=== PATIENT | male | born 1955 | race Caucasian/White ===

== ENCOUNTER 2016-09-04 10:12 | Day surgery (SDC) | payer OTHER ==
[~2016-09-04] VITALS: Ht 180.3 cm; Wt 129.2 kg
[~2016-09-04 10:12] MED LIST: ATORVASTATIN CA40 MG PO; BUMETANIDE0.5 MG PO; COMBIGAN O20 DROP/5 BOTH EYES; ELIQUIS5 MG PO; HUMALOG100 UNIT/1 SC; HUMULIN N100 UNITS/ SC; LATANOPROST2.5 ML LEFT EYE; LO-DOSE ASPIRIN81 M2 PO; METOPROLOL SUCC50 MG PO; OMEPRAZOLE40 M1 PO; PREDNISOLONE AC15 ML RIGHT EYE; RAMIPRIL2.5 MG PO
[2016-09-04 11:29] VITALS: BP 161/78
[2016-09-04 11:35] LABS: POINT-OF-CARE METER ID UU14174212
[2016-09-04 15:16] LABS: POINT-OF-CARE METER ID UU14174212
[2016-09-04 18:00] LABS: POINT-OF-CARE METER ID UU14174212
[2016-09-04 20:25] VITALS: BP 175/79
== END 2016-09-04 21:00 | disposition home or self-care (01) ==
LOC: SDC 10:12
PROVIDERS: Ophthalmology
DX: H43.391 Other vitreous opacities, right eye (principal); H44.111 Panuveitis, right eye; I10 Essential (primary) hypertension; E10.9 Type 1 diabetes mellitus without complications; Z79.4 Long term (current) use of insulin; I48.91 Unspecified atrial fibrillation; Z79.82 Long term (current) use of aspirin
CPT/HCPCS: 82948; 87102; 87205; J0690; J0713; J1100; J2250; J2405; J2795; J3010; J3370; J3465

== ENCOUNTER 2016-11-06 16:13 | Day surgery (SDC) | payer OTHER ==
[~2016-11-06] VITALS: Ht 180.3 cm; Wt 131.8 kg
[~2016-11-06 16:13] MED LIST changes: +BUMEX2 MG PO; -COMBIGAN O20 DROP/5 BOTH EYES; +COMBIGAN O20 DROP/5 LEFT EYE; +COMBIGAN O20 DROP/5 RIGHT EYE; +PLAVIX75 MG PO; +TOPROL XL50 MG PO; +TRUSOPT5 ML LEFT EYE
[2016-11-06 17:05] LABS: POINT-OF-CARE METER ID UU14174212
[2016-11-06 17:15] VITALS: BP 146/62
[2016-11-06 17:33] LABS: ANION GAP 11 MEQ/L (2-14); CHLORIDE 108 MEQ/L (99-109); POTASSIUM 3.8 MEQ/L (3.7-5.4); SAMPLE HEMOLYSIS CHECK 0; SAMPLE ICTERIC CHECK 0; SAMPLE LIPEMIA CHECK 0; SODIUM 138 MEQ/L (136-147)
[2016-11-06 17:39] LABS: GFR ESTIMATE (CALCULATED) 55 mL/min/; GLUCOSE 186 mg/dL (70-99); UREA NITROGEN (BUN) 33 mg/dL (9-23)
[2016-11-06 19:42] LABS: POINT-OF-CARE METER ID UU13113675
[2016-11-06 19:50] VITALS: BP 197/84
[2016-11-06 20:08] VITALS: BP 179/82
[2016-11-07 10:43] LABS: TREPONEMA ANTIBODY NEGATIVE (NEGATIVE)
[2016-11-07 12:18] LABS: LYME DISEASE SEROLOGY SCREEN NEGATIVE (NEGATIVE)
[2016-11-08 19:20] LABS: VARICELLA-ZOSTER VIRUS PCR+ <500 (<500); VZV SOURCE Vitreous (())
[2016-11-08 22:16] LABS: QGTB-NIL 0.09 IU/mL (()); TB AG-NIL <0.00 IU/mL (())
[2016-11-09 23:17] LABS: Neutrophil Cytoplasmic Aby Negative (Negative)
[2016-11-10 08:02] LABS: CMV DNA QN REAL TIME PCR <200 IU/mL (<200)
[2016-11-10 11:17] LABS: ANTI-NUCLEAR AB SCRN/RFLX(ANA) REACTIVE (NONREACTIVE)
[2016-11-10 11:21] LABS: CENTROMERE ANTIBODY 7 U/mL (0-99); HISTONE ANTIBODY 9 U/mL (0-99); JO-1 ANTIBODY 15 U/mL (0-99); SCL-70 (SCLERODERMA) ANTIBODY 11 U/mL (0-99); SM (SMITH) ANTIBODY 17 U/mL (0-99); SS-A (SJOGREN'S) ANTIBODY 179 U/mL (0-99); SS-B (SJOGREN'S) ANTIBODY 18 U/mL (0-99)
[2016-11-10 12:17] LABS: HLA-B27 Antigen+ Negative (Negative)
== END 2016-11-06 20:30 | disposition home or self-care (01) ==
LOC: SDC 16:13
PROVIDERS: Ophthalmology
DX: H43.391 Other vitreous opacities, right eye (principal); H44.001 Unspecified purulent endophthalmitis, right eye; E10.22 Type 1 diabetes mellitus with diabetic chronic kidney disease; I12.9 Hypertensive chronic kidney disease with stage 1 through stage 4 chronic kidney disease, or unspecified chronic kidney disease; N18.9 Chronic kidney disease, unspecified; I25.10 Atherosclerotic heart disease of native coronary artery without angina pectoris; Z98.61 Coronary angioplasty status
CPT/HCPCS: 80048; 82164 90; 82948; 86021 90; 86038; 86235; 86430; 86480 90; 86618; 86780; 86812 90; 87102; 87205; 87497 90; 87529 90; 87799 90; 88160; J0285; J0690; J0713; J1100; J2405; J2795; J3010; J3370; J3465

== ENCOUNTER 2016-11-22 12:33 | Inpatient (IN) | payer OTHER ==
[~2016-11-22] VITALS: Ht 180.3 cm; Wt 131.0 kg
[2016-11-22 13:57] LABS: EOSINOPHIL (%) 2.3 % (0-5); EOSINOPHIL COUNT 0.2 K/uL (0-0.3); HEMATOCRIT 37.7 % (38.0-50.0); IMMATURE GRANULOCYTE (%) 0.4 % (0.0-0.7); INSTRUMENT ABS NEUTROPHIL CT 5.7 K/uL; LYMPHOCYTE COUNT 1.2 K/uL (1.0-2.8); MCH 28.4 PG (29.0-34.0); MCHC 32.4 G/DL (30.0-36.0); MCV 87.7 FL (86-99); MEAN PLAT.VOLUME 9.3 uM^3 (9.0-12.4); MONOCYTE (%) 8.4 % (3-12); MONOCYTE COUNT 0.7 K/uL (0-0.8); NEUTROPHIL (%) 73.4 % (45-76); NEUTROPHIL COUNT 5.7 K/uL (1.8-6.4); PLATELET COUNT 274 K/uL (156-360); RBC DIS.WIDTH-CV 13.9 % (11.8-14.6); RBC DIS.WIDTH-SD 44.7 % (39-53); WHITE BLOOD COUNT 7.8 K/uL (4.1-10.2)
[2016-11-22 14:02] LABS: CHLORIDE 107 mEq/L (99-109); POTASSIUM 4.3 mEq/L (3.7-5.4); SODIUM 139 mEq/L (136-147)
[2016-11-22 14:03] LABS: INTER. NORMALIZED RATIO 1.1; PROTHROMBIN TIME 10.8 (9.2-11.2); PTT 30.9 (25-32)
[2016-11-22 14:05] LABS: GLUCOSE 298 mg/dL (70-99)
[2016-11-22 14:06] LABS: ANION GAP 9 MEQ/L (2-14)
[2016-11-22 14:07] LABS: TOTAL BILIRUBIN 0.4 mg/dL (0.0-1.0)
[2016-11-22 14:08] LABS: ALKALINE PHOSPHATASE 92 IU/L (3-129); GFR ESTIMATE (CALCULATED) 44 mL/min/
[2016-11-22 14:09] LABS: UREA NITROGEN (BUN) 39 mg/dL (9-23)
[2016-11-22] MEDS ORDERED: TOPROL XL25 MG PO ×2 (14:49→14:58)
[2016-11-22] MEDS ORDERED: BUMEX1 MG PO (15:02)
[2016-11-22] MEDS ORDERED: PANTOPRAZOLE SO40 MG PO (15:06)
[2016-11-22] MEDS ORDERED: VENTOLIN HFA18 GM IH (15:09)
[2016-11-22] MEDS ORDERED: PREDNISOLONE SOD5 ML RIGHT EYE (15:10)
[2016-11-22] MEDS ORDERED: NITROSTAT0.4 MG SL (15:10)
[2016-11-22 16:27] LABS: POINT-OF-CARE METER ID UU14100415
[2016-11-22 18:00] VITALS: BP 170/72
[2016-11-22 19:45] VITALS: BP 172/78
[2016-11-22 20:10] LABS: POINT-OF-CARE METER ID UU14162508
[2016-11-22 21:33] LABS: POINT-OF-CARE METER ID UU14162508
[2016-11-23 00:05] VITALS: BP 126/89
[2016-11-23 03:16] VITALS: BP 138/65
[2016-11-23 06:57] LABS: POINT-OF-CARE METER ID UU14162508
[2016-11-23 07:55] VITALS: BP 150/70
[2016-11-23 11:17] LABS: HEMATOCRIT 35.9 % (38.0-50.0); MCV 87.6 FL (86-99); MEAN PLAT.VOLUME 8.9 uM^3 (9.0-12.4); PLATELET COUNT 235 K/uL (156-360); RBC DIS.WIDTH-CV 13.9 % (11.8-14.6); RBC DIS.WIDTH-SD 44.5 % (39-53); WHITE BLOOD COUNT 6.6 K/uL (4.1-10.2)
[2016-11-23 11:51] LABS: ANION GAP 9 MEQ/L (2-14); CHLORIDE 109 MEQ/L (99-109); MAGNESIUM 1.9 mg/dl (1.3-2.7); POTASSIUM 4.2 MEQ/L (3.7-5.4); SAMPLE HEMOLYSIS CHECK 0; SAMPLE ICTERIC CHECK 0; SAMPLE LIPEMIA CHECK 0; SODIUM 141 MEQ/L (136-147)
[2016-11-23 11:56] LABS: GFR ESTIMATE (CALCULATED) > 59 mL/min/; GLUCOSE 195 mg/dL (70-99); UREA NITROGEN (BUN) 25 mg/dL (9-23)
[2016-11-23 13:29] LABS: POINT-OF-CARE METER ID UU14162508
[2016-11-23 16:06] VITALS: BP 145/62
[2016-11-23 16:11] LABS: POINT-OF-CARE METER ID UU14162508
[2016-11-23 20:08] VITALS: BP 179/73
[2016-11-24 00:27] VITALS: BP 116/63
[2016-11-24 07:25] VITALS: BP 166/73
[2016-11-24 07:34] LABS: HEMATOCRIT 34.6 % (38.0-50.0); MCH 28.3 PG (29.0-34.0); MCHC 32.1 G/DL (30.0-36.0); MCV 88.3 FL (86-99); MEAN PLAT.VOLUME 9.2 uM^3 (9.0-12.4); PLATELET COUNT 238 K/uL (156-360); RBC DIS.WIDTH-CV 13.8 % (11.8-14.6); RBC DIS.WIDTH-SD 44.6 % (39-53); RED BLOOD COUNT 3.92 M/uL (4.00-5.50); WHITE BLOOD COUNT 5.5 K/uL (4.1-10.2)
[2016-11-24 07:56] LABS: ANION GAP 8 MEQ/L (2-14); CHLORIDE 112 MEQ/L (99-109); GFR ESTIMATE (CALCULATED) 55 mL/min/; GLUCOSE 155 mg/dL (70-99); SAMPLE HEMOLYSIS CHECK 0; SAMPLE ICTERIC CHECK 0; SAMPLE LIPEMIA CHECK 0; SODIUM 143 MEQ/L (136-147); UREA NITROGEN (BUN) 26 mg/dL (9-23)
[2016-11-24] MEDS ORDERED: KEFLEX500 MG PO (13:02)
[2016-11-24] MEDS ORDERED: DOXYCYCLINE HY100 MG PO (13:02)
== END 2016-11-24 14:34 | disposition home or self-care (01) | DRG 603 ==
LOC: EME 12:33 → 2EAST 15:48 → EDOF 15:48 → 2EASTP 17:49 → 2EAST 20:22
PROVIDERS: Emergency Medicine; Hospitalist; Internal Medicine
PROC: 0W9M3ZZ Drainage of Male Perineum, Percutaneous Approach (ICD-10-PCS; principal; 2016-11-22)
DX: L02.215 Cutaneous abscess of perineum (principal); E11.22 Type 2 diabetes mellitus with diabetic chronic kidney disease; N18.3 Chronic kidney disease, stage 3 (moderate); L03.315 Cellulitis of perineum; N49.2 Inflammatory disorders of scrotum; I48.0 Paroxysmal atrial fibrillation; Z79.4 Long term (current) use of insulin; E66.9 Obesity, unspecified; G47.33 Obstructive sleep apnea (adult) (pediatric); G89.29 Other chronic pain; I25.2 Old myocardial infarction; Z95.5 Presence of coronary angioplasty implant and graft; I12.9 Hypertensive chronic kidney disease with stage 1 through stage 4 chronic kidney disease, or unspecified chronic kidney disease; M54.9 Dorsalgia, unspecified; I25.810 Atherosclerosis of coronary artery bypass graft(s) without angina pectoris; H40.9 Unspecified glaucoma
CPT/HCPCS: 74176; 80048; 80053; 82948; 83605; 83735; 85025; 85027; 85610; 85730; 87040; 87070; 87075; 87076; 87205; 94660; 99202; 99281; 99285; J1815; J2543; J3370; J7030; J7050

== ENCOUNTER 2016-12-08 14:34 | Day surgery (SDC) | payer OTHER ==
[~2016-12-08] VITALS: Ht 180.3 cm; Wt 131.0 kg
[~2016-12-08 14:34] MED LIST changes: +BUMEX1 MG PO; +DOXYCYCLINE HY100 MG PO; +KEFLEX500 MG PO; +NITROSTAT0.4 MG SL; +PANTOPRAZOLE SO40 MG PO; +PREDNISOLONE SOD5 ML RIGHT EYE; +TOPROL XL25 MG PO; +VENTOLIN HFA18 GM IH
[2016-12-08 15:12] VITALS: BP 152/73
[2016-12-08 15:12] LABS: ANION GAP 10 MEQ/L (2-14); CHLORIDE 104 MEQ/L (99-109); SAMPLE HEMOLYSIS CHECK 0; SAMPLE ICTERIC CHECK 0; SAMPLE LIPEMIA CHECK 0; SODIUM 139 MEQ/L (136-147); TOTAL BILIRUBIN 0.5 MG/DL (0.0-1.0)
[2016-12-08 15:17] LABS: ALKALINE PHOSPHATASE 97 IU/L (3-129); GFR ESTIMATE (CALCULATED) 47 mL/min/; GLUCOSE 79 mg/dL (70-99); UREA NITROGEN (BUN) 45 mg/dL (9-23)
[2016-12-08 15:33] LABS: POINT-OF-CARE METER ID UU14174212
[2016-12-08 15:39] LABS: HEMATOCRIT 41.8 % (38.0-50.0); MCH 27.8 PG (29.0-34.0); MCHC 32.1 G/DL (30.0-36.0); MCV 86.7 FL (86-99); MEAN PLAT.VOLUME 9.1 uM^3 (9.0-12.4); PLATELET COUNT 278 K/uL (156-360); RBC DIS.WIDTH-CV 14.2 % (11.8-14.6); RED BLOOD COUNT 4.82 M/uL (4.00-5.50); WHITE BLOOD COUNT 7.2 K/uL (4.1-10.2)
[2016-12-08 16:02] LABS: POINT-OF-CARE METER ID UU14174212
[2016-12-08 16:46] LABS: POINT-OF-CARE METER ID UU14174212
[2016-12-08 17:45] LABS: POINT-OF-CARE METER ID UU14174212
[2016-12-08 19:18] LABS: POINT-OF-CARE METER ID UU13113675
[2016-12-08 19:35] VITALS: BP 178/79
== END 2016-12-08 20:03 | disposition home or self-care (01) ==
LOC: SDC 14:34
PROVIDERS: Ophthalmology
DX: H44.19 Other endophthalmitis (principal); H26.101 Unspecified traumatic cataract, right eye; X58.XXXA Exposure to other specified factors, initial encounter; E10.22 Type 1 diabetes mellitus with diabetic chronic kidney disease; I12.9 Hypertensive chronic kidney disease with stage 1 through stage 4 chronic kidney disease, or unspecified chronic kidney disease; I48.91 Unspecified atrial fibrillation; I25.10 Atherosclerotic heart disease of native coronary artery without angina pectoris; N18.9 Chronic kidney disease, unspecified; I25.2 Old myocardial infarction; G47.30 Sleep apnea, unspecified; Z79.4 Long term (current) use of insulin; Z79.01 Long term (current) use of anticoagulants; Z95.5 Presence of coronary angioplasty implant and graft; Z95.1 Presence of aortocoronary bypass graft
CPT/HCPCS: 80053; 82948; 85027; 87102; 87205; 88160; 93005; J0285; J0690; J0713; J1100; J2795; J3370; J3465